=== PATIENT | female | born 1955 | race Asian ===

== ENCOUNTER 2021-02-08 08:00 | Outpatient (CLI) | payer MEDICARE, OTHER | END 2021-02-08 23:59 | disposition home or self-care (01) | LOC: LAB.N 08:00 | PROVIDERS: ATTEND Physician Assistant Medical | DX: N30.00 Acute cystitis without hematuria (principal) | CPT/HCPCS: 82962; 87086; 87181 ==

== ENCOUNTER 2022-09-02 16:20 | Outpatient (CLI) | payer MEDICARE, OTHER | END 2022-09-02 23:59 | disposition home or self-care (01) | LOC: LAB.N 16:20 | PROVIDERS: ATTEND Registered Nurse | DX: R30.0 Dysuria (principal) | CPT/HCPCS: 87086 ==

== ENCOUNTER 2023-07-19 06:21 | Day surgery (SDC) | payer MEDICARE, OTHER ==
[2023-07-19] MEDS: LACTATED RINGERS 1,000 ML IV ONE (06:25)
[2023-07-19] MEDS: KETOROLAC 0.45% OPHTH DROPS ONE (06:37)
[2023-07-19] MEDS: PHENYLEPHRINE 2.5% OPHTH 2 ML DROPS ONE (06:37)
[2023-07-19] MEDS ORDERED: BSS/LIDOCAINE/EPINEPHRINE 1 ML VIAL ONE (06:53)
[2023-07-19] MEDS ORDERED: TRIAMCIN/MOXIFLOX OPHTHALMIC 0.6 ML VIAL IO ONE (06:53)
[2023-07-19] MEDS ORDERED: EPINEPHrine 1 MG/ML AMP ONE (06:53)
[2023-07-19] MEDS ORDERED: TIMOLOL 0.5% OPHTH DROPS ONE (06:53)
[2023-07-19] MEDS ORDERED: BRIMONIDINE 0.2% OPHTH DROPS 5 ML ONE (06:53)
--- NOTE | 2023-07-19 07:01 | ANESTHESIA ---
Pre-Anesthesia VS, & Labs - Diagnosis L senile combined cataract - Procedure L cataract extraction with IOL Vital Signs: Temp Pulse Resp BP Pulse Ox O2 Flow Rate 36.1 C L 75 16 129/70 75 L 07/19/23 06:28 07/19/23 06:28 07/19/23 06:28 07/19/23 06:28 07/19/23 06:28 Height: 5 ft 3 in Weight (kg): 65 kg Body Mass Index: 25.4 BMI Classification: Overweight - NPO >8 hours - Is Patient ?: No - Lab Results Lab results reviewed: Yes Home Medications and Allergies Home Medications: Ambulatory Orders Ascorbic Acid [Vitamin C] 500 mg PO DAILY 07/18/23 Aspirin EC [Ecotrin] 1 tab PO DAILY 07/18/23 Calcium Carbonate [Calcium] 1 tab PO DAILY 07/18/23 Cholecalciferol (Vitamin D3) [Vitamin D3] 1,000 unit PO DAILY 07/18/23 Folic Acid 0.4 mg PO DAILY 07/18/23 Magnesium Citrate and Oxide [Magnesium] 1 cap PO DAILY 07/18/23 Omeprazole 1 tab PO DAILY 07/18/23 Pregabalin 1 cap PO DAILY 07/18/23 Rosuvastatin Calcium [Crestor] 1 tab PO DAILY 07/18/23 Senna [Senokot] 1 tab PO DAILY 07/18/23 Vit A/Vit C/Vit E/Zinc/Copper [Icaps Areds Softgel] 2 cap PO DAILY 07/18/23 amLODIPine [Norvasc] 1 tab PO DAILY 07/18/23 Cetirizine HCl [Zyrtec] 10 mg PO DAILY PRN 02/21/15 Levothyroxine [Synthroid] 75 mcg PO DAILY 02/21/15 Calcium Carbonate/Vitamin D3 [Calcium 500 + Vit D Caplet] 1 each PO DAILY 02/28/16 Ascorbic Acid [Vitamin C] 500 mg PO DAILY 07/18/23 Aspirin EC [Ecotrin] 1 tab PO DAILY 07/18/23 Calcium Carbonate [Calcium] 1 tab PO DAILY 07/18/23 Cholecalciferol (Vitamin D3) [Vitamin D3] 1,000 unit PO DAILY 07/18/23 Folic Acid 0.4 mg PO DAILY 07/18/23 Magnesium Citrate and Oxide [Magnesium] 1 cap PO DAILY 07/18/23 Omeprazole 1 tab PO DAILY 07/18/23 Pregabalin 1 cap PO DAILY 07/18/23 Rosuvastatin Calcium [Crestor] 1 tab PO DAILY 07/18/23 Senna [Senokot] 1 tab PO DAILY 07/18/23 Vit A/Vit C/Vit E/Zinc/Copper [Icaps Areds Softgel] 2 cap PO DAILY 07/18/23 amLODIPine [Norvasc] 1 tab PO DAILY 07/18/23 Allergies/Adverse Reactions: Allergies Allergy/AdvReac Type Severity Reaction Status Date / Time bacitracin AdvReac Rash Verified 07/18/23 13:22 [From Neosporin Plus] lidocaine AdvReac Rash Verified 07/18/23 13:22 [From Neosporin Plus] neomycin AdvReac Rash Verified 07/18/23 13:22 [From Neosporin Plus] polymyxin B AdvReac Rash Verified 07/18/23 13:22 [From Neosporin Plus] pramoxine AdvReac Rash Verified 07/18/23 13:22 [From Neosporin Plus] Anes History & Medical History - Anesthetic History Anesthesia Complications: reports: No previous complications Family history of Anesthesia Complications: Denies Family history of Malignant Hyperthermia: Denies - Medical History Cardiovascular: reports: Hypertension, High cholesterol Pulmonary: reports: None Gastrointestinal: reports: GERD Urinary: reports: None Musculoskeletal: reports: Fibromyalgia, Rheumatoid arthritis Endocrine/Autoimmune: reports: HyPOthyroidism Skin: reports: None Smoking Status: Never smoker - Surgical History General: reports: Colonoscopy Eyes Ears Nose Throat (EENT): reports: Tonsil/Adenoidectomy Gynecologic: reports: Hysterectomy Exam General: Alert, Oriented x3, Cooperative Mouth Openin Fingerbreadth Neck Mobility: Normal Mallampati classification: II Thyromental Distance: 4-6 cm Respiratory: Lungs clear, Normal breath sounds Cardiovascular: Regular rate Neurological: Normal speech Mental/Cognitive Status: Alert/Oriented X3, Normal for patient Cognitive Status: Within normal limits Plan Anesthesia Type: MAC Consent for Procedure(s) Verified and Reviewed: Yes Code Status: Attempt Resuscitation ASA classification: 2-Mild systemic disease Is this case an emergency?: No
[2023-07-19] MEDS ORDERED: MIDAZOLAM 2 MG/2 ML VIAL ONE (07:09)
[2023-07-19] MEDS: TIMOLOL 0.5% OPHTH DROPS OPTH ONE (07:17)
[2023-07-19] MEDS: EPINEPHrine 1 MG/ML AMP IR ONE (07:17)
[2023-07-19] MEDS: BRIMONIDINE 0.2% OPHTH DROPS 5 ML OPTH ONE (07:17)
[2023-07-19] MEDS: BSS/LIDOCAINE/EPINEPHRINE 1 ML SYRINGE IO ONE (07:17)
[2023-07-19] MEDS: TRIAMCIN/MOXIFLOX OPHTHALMIC 0.6 ML VIAL IO ONE (07:18)
[2023-07-19] MEDS: VANCOMYCIN OPHTH (TOPICAL) 10 MG/ML SYRINGE TOP ONE (07:18)
[2023-07-19] MEDS: PROPARACAINE 0.5% OPHTH DROPS 15 ML EACHEYE ONE (07:18)
[2023-07-19] MEDS: LACTATED RINGERS 900 ML IV ONE (07:43)
--- NOTE | 2023-07-19 07:52 | OPERATIVE REPORT ---
Operative Report - Other Other Information/Narrative: Date of Surgery: 07/19/23 Preop Dx: Visually significant cataract left eye. This was the first cataract surgery. Postop Dx: Same Procedure: Phacoemulsification with posterior chamber intraocular lens implant left eye Surgeon: Dr. Marko Lund Anesthesia: Monitored anesthesia care Complications: None Operative Indications: This is a 68-year-old F with progressive vision loss in the left eye due to 1-2+ nuclear sclerotic, 2+ cortical, and 1-2+ posterior subcapsular cataract. Best corrected visual acuity was 20/80 with glare to 20/630 vision in the left eye. Indications for surgery were: - Overall decrease in vision - Difficulty seeing words on a computer screen - Difficulty reading - Difficulty seeing words, closed captions, or game scores on TV - Difficulty seeing street signs - Difficulty driving in low light or at night - Difficulty driving at night because of headlights from other vehicles - Difficulty with glare or bright lights in any situation The patient was consented at length concerning the risks and benefits of cataract surgery after which the patient expressed a desire to proceed with surgery. Operative Procedure: The patient was taken into OR#3 and placed under monitored anesthesia care. A surgical time-out was conducted confirming correct patient, correct procedure, and correct surgical site. The patient was given topical anesthesia and then prepped and draped in the usual sterile fashion. The eye was entered at the 6 and 3 oclock positions. Intracameral Shugarcaine was injected into the anterior chamber followed by a dispersive viscoelastic. A continuous-tear curvilinear capsulorhexis was performed. The nucleus was hy drodissected and phacoemulsified. The cortex was evacuated using automated infusion and aspiration. A cohesive viscoelastic was injected into the capsular bag and a 17.5 diopter intraocular lens was inserted into the bag. Infusion and aspiration were used to evacuate the viscoelastic materials from the eye. The wounds were hydrated and the eye inflated to physiologic pressure using balanced salt solution. Approximately 0.25ml of a mixture of triamcinolone and moxifloxacin was injected trans-sclerally into the vitreous in the inferotemporal quadrant using a 30 gauge cannula. An additional 0.25ml of a mixture of triamcinolone and moxifloxacin was injected subconjunctivally in the superior quadrant for infection and inflammation prophylaxis. Wound integrity was checked with Weck-Mabel sponges. The patient was taken from the operating room in good condition and given post-op instructions.
[2023-07-19 08:09] VITALS: BP 117/61; O2SAT 98
--- NOTE | 2023-07-19 09:31 | ANESTHESIA POST OP EVALUATION ---
Anesthesia Post Eval - Post Anesthesia Eval Vitals: Last Vital Signs Temp 37.0 C 07/19/23 07:58 Pulse 86 07/19/23 07:58 Resp 18 07/19/23 07:58 BP 117/61 07/19/23 07:58 Pulse Ox 98 07/19/23 07:58 O2 Flow Rate CV Function Including HR & BP: Stable Pain Control: Satisfactory Nausea & Vomiting: Negative Mental Status: Baseline Respiratory Status: Airway Patent Hydration Status: Satisfactory Anesthesia Complications: None
== END 2023-07-19 06:22 | disposition home or self-care (01) ==
LOC: SDS 06:21
PROVIDERS: ATTEND Ophthalmology
DX: H25.812 Combined forms of age-related cataract, left eye (principal); I10 Essential (primary) hypertension
CPT/HCPCS: 66984; A9270; J7120

== ENCOUNTER 2023-10-04 06:57 | Day surgery (SDC) | payer MEDICARE, OTHER ==
[2023-10-04] MEDS: LACTATED RINGERS 1,000 ML IV ONE ×2 (07:10→08:24)
[2023-10-04] MEDS: PROPARACAINE 0.5% OPHTH DROPS 15 ML ONE (07:10)
[2023-10-04] MEDS: KETOROLAC 0.45% OPHTH DROPS ONE (07:15)
[2023-10-04] MEDS: PHENYLEPHRINE 2.5% OPHTH 2 ML DROPS ONE (07:15)
--- NOTE | 2023-10-04 07:36 | ANESTHESIA ---
Pre-Anesthesia VS, & Labs - Diagnosis R cataract - Procedure R phacoIOL Vital Signs: Temp Pulse Resp BP Pulse Ox O2 Flow Rate 36.5 C 78 16 127/74 99 10/04/23 07:13 10/04/23 07:13 10/04/23 07:13 10/04/23 07:13 10/04/23 07:13 Height: 5 ft 3.5 in Weight (kg): 65.77 kg Body Mass Index: 25.2 BMI Classification: Overweight - NPO >8 hours - Is Patient ?: No Home Medications and Allergies Home Medications: Ambulatory Orders Fluticasone [Flonase] 1 puffs INH BID 10/03/23 Cetirizine HCl [Zyrtec] 10 mg PO DAILY PRN 02/21/15 Levothyroxine [Synthroid] 75 mcg PO DAILY 02/21/15 Calcium Carbonate/Vitamin D3 [Calcium 500 + Vit D Caplet] 1 each PO DAILY 02/28/16 Ascorbic Acid [Vitamin C] 500 mg PO DAILY 07/18/23 Aspirin EC [Ecotrin] 1 tab PO DAILY 07/18/23 Calcium Carbonate [Calcium] 1 tab PO DAILY 07/18/23 Cholecalciferol (Vitamin D3) [Vitamin D3] 1,000 unit PO DAILY 07/18/23 Folic Acid 0.4 mg PO DAILY 07/18/23 Magnesium Citrate and Oxide [Magnesium] 1 cap PO DAILY 07/18/23 Omeprazole 1 tab PO DAILY 07/18/23 Pregabalin 1 cap PO HS 07/18/23 Rosuvastatin Calcium [Crestor] 1 tab PO HS 07/18/23 Senna [Senokot] 1 tab PO DAILY 07/18/23 Vit A/Vit C/Vit E/Zinc/Copper [Icaps Areds Softgel] 2 cap PO DAILY 07/18/23 amLODIPine [Norvasc] 1 tab PO DAILY 07/18/23 Fluticasone [Flonase] 1 puffs INH BID 10/03/23 Allergies/Adverse Reactions: Allergies Allergy/AdvReac Type Severity Reaction Status Date / Time bacitracin AdvReac Rash Verified 10/04/23 07:12 [From Neosporin Plus] neomycin AdvReac Rash Verified 10/04/23 07:12 [From Neosporin Plus] polymyxin B AdvReac Rash Verified 10/04/23 07:12 [From Neosporin Plus] pramoxine AdvReac Rash Verified 10/04/23 07:12 [From Neosporin Plus] Anes History & Medical History - Anesthetic History Anesthesia Complications: reports: No previous complications Family history of Anesthesia Complications: Denies Family history of Malignant Hyperthermia: Denies - Medical History Cardiovascular: reports: Hypertension, High cholesterol Pulmonary: reports: None Gastrointestinal: reports: GERD, Hemorrhoids, Diverticulitis Urinary: reports: None Musculoskeletal: reports: Osteoporosis Endocrine/Autoimmune: reports: HyPOthyroidism Skin: reports: None Smoking Status: Never smoker - Surgical History General: reports: Colonoscopy Eyes Ears Nose Throat (EENT): reports: Cataracts Gynecologic: reports: Hysterectomy Exam General: Alert, Oriented x3, Cooperative Dental: WNL Mouth Openin Fingerbreadth Neck Mobility: Normal Mallampati classification: II Thyromental Distance: 4-6 cm Respiratory: Lungs clear Cardiovascular: Regular rate Plan Anesthesia Type: MAC Consent for Procedure(s) Verified and Reviewed: Yes Code Status: Attempt Resuscitation ASA classification: 2-Mild systemic disease Is this case an emergency?: No
[2023-10-04] MEDS ORDERED: TIMOLOL 0.5% OPHTH DROPS ONE (07:52)
[2023-10-04] MEDS ORDERED: BSS/LIDOCAINE/EPINEPHRINE 1 ML VIAL ONE (07:52)
[2023-10-04] MEDS ORDERED: EPINEPHrine 1 MG/ML AMP ONE (07:52)
[2023-10-04] MEDS ORDERED: TRIAMCIN/MOXIFLOX OPHTHALMIC 0.6 ML VIAL IO ONE (07:52)
[2023-10-04] MEDS ORDERED: BRIMONIDINE 0.2% OPHTH DROPS 5 ML ONE (07:52)
[2023-10-04] MEDS ORDERED: MIDAZOLAM 2 MG/2 ML VIAL ONE (08:00)
[2023-10-04] MEDS: BSS/LIDOCAINE/EPINEPHRINE 1 ML SYRINGE IO ONE (08:13)
[2023-10-04] MEDS: TIMOLOL 0.5% OPHTH DROPS OPTH ONE (08:13)
[2023-10-04] MEDS: PROPARACAINE 0.5% OPHTH DROPS 15 ML RIGHTEYE ONE (08:13)
[2023-10-04] MEDS: TRIAMCIN/MOXIFLOX OPHTHALMIC 0.6 ML VIAL IO ONE (08:13)
[2023-10-04] MEDS: EPINEPHrine 1 MG/ML AMP IR ONE (08:13)
[2023-10-04] MEDS: BRIMONIDINE 0.2% OPHTH DROPS 5 ML OPTH ONE (08:13)
[2023-10-04] MEDS: VANCOMYCIN OPHTH (TOPICAL) 10 MG/ML SYRINGE TOP ONE (08:14)
--- NOTE | 2023-10-04 08:30 | OPERATIVE REPORT ---
Operative Report - Other Other Information/Narrative: Date of Surgery: 10/04/23 Preop Dx: Visually significant cataract right eye. Cataract surgery was performed in the left eye on . Postop Dx: Same Procedure: Phacoemulsification with posterior chamber intraocular lens implant right eye Surgeon: Dr. Marko Lund Anesthesia: Monitored anesthesia care Complications: None, Operative Indications: This is a 68-year-old F with progressive vision loss in the right eye due to 1-2+ nuclear sclerotic, 2-3+ cortical, and vacuolar cataract. Best corrected visual acuity was 20/40 with glare to 20/80 vision in the right eye. Indications for surgery were: - Overall decrease in vision - Difficulty seeing words, closed captions, or game scores on TV - Difficulty seeing street signs - Difficulty driving at night because of headlights from other vehicles - Difficulty with glare or bright lights in any situation The patient was consented at length concerning the risks and benefits of cataract surgery after which the patient expressed a desire to proceed with surgery. Operative Procedure: The patient was taken into OR#3 and placed under monitored anesthesia care. A surgical time-out was conducted confirming correct patient, correct procedure, and correct surgical site. The patient was given topical anesthesia and then prepped and draped in the usual sterile fashion. The eye was entered at the 6 and 3 oclock positions. Intracameral Shugarcaine was injected into the anterior chamber followed by a dispersive viscoelastic. A continuous-tear curvilinear capsulorhexis was performed. The nucleus was hydrodissected and phacoemulsified. The cortex was evacuated using automated infusion and aspiration. A cohesive viscoelastic was injected into the capsular bag and a 17.5 diopter intraocular lens was inserted into the bag. Infusion and aspiration were used to evacuate the viscoelastic materials from the eye. The wounds were hydrated and the eye inflated to physiologic pressure using balanced salt solution. Approximately 0.25ml of a mixture of triamcinolone and moxifloxacin was injected trans-sclerally into the vitreous in the inferotemporal quadrant using a 30 gauge cannula. An additional 0.25ml of a mixture of triamcinolone and moxifloxacin was injected subconjunctivally in the superior quadrant for infection and inflammation prophylaxis. Wound integrity was checked with Weck-Mabel sponges. The patient was taken from the operating room in good condition and given post-op instructions.
[2023-10-04 08:55] VITALS: BP 108/51; O2SAT 99
--- NOTE | 2023-10-04 12:52 | ANESTHESIA POST OP EVALUATION ---
Anesthesia Post Eval - Post Anesthesia Eval Vitals: Last Vital Signs Temp 36.2 C L 10/04/23 08:45 Pulse 68 10/04/23 08:45 Resp 15 10/04/23 08:45 BP 108/51 L 10/04/23 08:45 Pulse Ox 99 10/04/23 08:45 O2 Flow Rate CV Function Including HR & BP: Stable Pain Control: Satisfactory Nausea & Vomiting: Negative Mental Status: Baseline Respiratory Status: Airway Patent Hydration Status: Satisfactory Anesthesia Complications: None
== END 2023-10-04 06:58 | disposition home or self-care (01) ==
LOC: SDS 06:57
PROVIDERS: ATTEND Ophthalmology
DX: H25.811 Combined forms of age-related cataract, right eye (principal); E03.9 Hypothyroidism, unspecified; I10 Essential (primary) hypertension; Z98.42 Cataract extraction status, left eye
CPT/HCPCS: 66984; A9270; J3490; J7120